=== PATIENT | male | born 1955 | race Caucasian/White ===

== ENCOUNTER 2016-07-30 10:49 | Emergency (ER) | payer OTHER ==
[2016-07-30 11:25] VITALS: BP 130/77; PULSE 62; RESP 14; TEMP 98.2; O2SAT 95
--- NOTE | 2016-07-30 12:10 | UCPHY ---
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 He slammed his hand against the bin and sustained an injury with pain to the L. 1st MCP joint. The injury occurred a few days [employer]IOR SYSTEM [employer]PER[employer] and is causing ongoing moderate pain that worsens with movement and changes from an ache to sharp pain. Patient reports that the pain extends up into his mid volar forearm ROS: No numbness. No other injuries. 5 pt. ROS o/w neg. Past Medical/Surgical History: healthy Smoking Status: Never smoked Physical Exam: Physical Exam Vital signs are normal. General: No acute distress Eyes: Pupils equal and react to light. Extraocular motions are intact. Lungs: No respiratory distress. Cardiac: Brisk capillary refill is intact throughout. Pulses are 2+ and symmetric in the affected extremity. Skin: No rash or pallor. Extremities: Atraumatic normal except for left hand and upper extremity Left hand: Patient has moderate tenderness at the 1st metacarpophalangeal joint no ecchymosis. No gross deformity. Left arm: Patient has volar tenderness to the forearm without ecchymosis or deformity retains good range of motion of his wrist and fingers. Neuro: Alert and oriented x3 with no sensorimotor deficits. Initial differential diagnosis: Sprain versus fracture Constitutional: Initial Vital Signs Temperature (C) 36.8 C 07/30/16 11:22 Heart Rate 62 07/30/16 11:22 Respiratory Rate 14 07/30/16 11:22 Blood Pressure 130/77 H 07/30/16 11:22 O2 Sat (%) 95 07/30/16 11:22 O2 Delivery Mode Room Air Allergies/Adverse Reactions: No Known Allergies Allergy (Verified 07/30/16 11:21) Home Medications: Medication Instructions Recorded NK [No Known Home Meds] 02/01/14 MDM/Departure - MDM Diagnostics: Wrist x-ray was ordered from triage which actually read demonstrates the injured area sufficiently. No fracture by my interpretation ED Course/Re-evaluation: I counseled patient regarding thumb sprain. He is placed in a Velcro thumb spica splint. - Depart Disposition: Home, Routine, Self-Care Condition: Good Instructions: Muscle Strain (ED), Skier's Thumb (ED) Additional Instructions: Diagnoses: 1. Left thumb sprain at the metacarpophalangeal joint 2. Left forearm muscle and/or tendon strain Plan: Ice 20 minutes at a time 3 times a day for the next few days Continue [id number] mg per 6 hours while awake as needed Tylenol in addition as needed No lifting or use of left hand over the next week. Follow up with Orthopedics if you're not improving despite the rest and treatment plan. Stand Alone Forms: Work Excuse Referrals: NONE *PRIMARY CARE P,. [Primary Care Provider] - As per Instructions Dusty Burdick MD [Medical Doctor] - As per Instructions - PQRS PQRS Measurement: NA
== END 2016-07-30 12:48 | disposition home or self-care (01) ==
LOC: CED 10:49
PROC: 2W3FX1Z Immobilization of Left Hand using Splint (ICD-10-PCS; principal; 2016-07-30)
DX: S63.642A Sprain of metacarpophalangeal joint of left thumb, initial encounter (principal); S56.812A Strain of other muscles, fascia and tendons at forearm level, left arm, initial encounter; W22.8XXA Striking against or struck by other objects, initial encounter; Y92.813 Airplane as the place of occurrence of the external cause; Y99.0 Civilian activity done for income or pay
CPT/HCPCS: 73110-PO; G0463-PO; L3807